=== PATIENT | female | born 1975 | race Caucasian/White ===

== ENCOUNTER 2016-09-15 10:18 | Day surgery (SDC) | payer OTHER ==
[~2016-09-15 10:18] MED LIST: Kenalog-40 IM ONE; Lactated Ringers 1,000 ML IV ONE; Sensorcaine 0.25% 10 ML IJ ONE
--- NOTE | 2016-09-15 16:25 | XRAY ---
Indication: Right L2-L5 MBB. Intraoperative fluoroscopy was provided for 17 seconds. Single digital spot image submitted for interpretation demonstrates posterior spinal needles with the tips projecting over the expected course of the right L2-L5 nerve roots. Correlate with intraoperative findings/report.
--- NOTE | 2016-09-15 17:00 | XRAY ---
17 seconds fluoroscopy time in surgery for right L2-5 MBB.
== END 2016-09-15 13:45 | disposition home or self-care (01) ==
LOC: SDC-PAIN 10:18
PROVIDERS: ATTEND Pain Medicine Interventional Pain Medicine
DX: M51.36 Other intervertebral disc degeneration, lumbar region (principal); M54.16 Radiculopathy, lumbar region; M48.06 Spinal stenosis, lumbar region; Z79.891 Long term (current) use of opiate analgesic
CPT/HCPCS: 64493; 64494; 64495; 72020; 77003; J3301